=== PATIENT | male | born 1990 | race Caucasian/White ===

== ENCOUNTER 2021-06-18 04:08 | Emergency (ER) | payer OTHER ==
[~2021-06-18] VITALS: Ht 177.8 cm; Wt 78.0 kg
[2021-06-18] MEDS ORDERED: AZITHROMYCIN500 MG PO (04:23)
[2021-06-18] MEDS ORDERED: REGLAN 10 MG TA10 MG PO (04:23)
[2021-06-18] MEDS ORDERED: ACID REDUCER20 MG PO (04:24)
[2021-06-18] MEDS ORDERED: CYROHEPTADINE (04:25)
[2021-06-18 04:49] LABS: ABSOLUTE LYMPHOCYTES 0.8 thou/uL (0.8-5.3); ABSOLUTE MONOCYTES 0.2 thou/uL (0.0-1.2); ABSOLUTE NEUTROPHILS 2.1 thou/uL (1.6-8.1); BASOPHILS 0.8 %; EOSINOPHILS 0.3 %; HEMATOCRIT 37.7 % (42.0-52.0); LYMPHOCYTES 25.7 %; MCH 29.8 pg (26.0-34.0); MCHC 34.5 g/dL (28.0-37.0); MCV 86.3 fL (80.0-100.0); MONOCYTES 5.9 %; NUCLEATED RBCS 0 /100WBC; PLATELET COUNT* 129 thou/uL (150-400); POLYS 67.3 %; RBC 4.37 mil/uL (4.50-6.00); RDW-CV 12.7 % (10.5-14.5); WBC 3.1 thou/uL (4.0-11.0)
[2021-06-18 05:00] LABS: CALCIUM 8.2 mg/dL (8.5-10.1)
[2021-06-18 05:04] LABS: ALBUMIN 3.4 g/dL (3.4-5.0); TOTAL BILIRUBIN 0.3 mg/dL (<0.1-1.0); TOTAL PROTEIN 6.7 g/dL (6.4-8.2)
[2021-06-18] MEDS ORDERED: PROAIR HFA8.5 GM INH (06:20)
[2021-06-18] MEDS ORDERED: AUGMENTIN 875-1 EACH PO (06:20)
[2021-06-18] MEDS ORDERED: ZOFRAN ODT4 MG PO (06:20)
[2021-06-18] MEDS ORDERED: HYDROCODONE-CH115 ML PO (06:20)
[2021-06-18] MEDS ORDERED: DECADRON6 MG PO (06:20)
[2021-06-18 06:42] VITALS: BP 130/76
--- NOTE | 2021-06-18 11:24 | EKG ---
[place] [address] ELECTROCARDIOGRAM REPORT Name: HERMINIA MOTA DAVID Room: [facility]#: [id number] Admission: 06/18/21 Attend Phys: Discharge: 06/18/21 Date of : 88 Date of Service: 06/18/21446 Report #: [id number] THIS REPORT FOR: //name// [facility] ED Test Date: 2021-06-18 Test Time: 04:47:27 Pat Name: HERMINIA MOTA Department: Room: Gender: [employer] Paralegal: [facility] : 1990 Requested By: Mily Guerra Order Number: [id number] MD: Lars Walls Measurements Intervals [place] Rate: 84 P: 70 [place]: 128 QRS: 68 QRSD: 86 T: 16 QT: 331 QTc: 392 Interpretive Statements Sinus rhythm No previous ECG available for comparison Electronically Signed On 06-18-2021 11:24:39 CDT by Lars Walls [email or web address] <ELECTRONICALLY SIGNED> By: Lars Walls MD, [facility] 06/18/21 1124 6 6 Lars Walls MD, FACC /EPI
== END 2021-06-18 06:42 | disposition home or self-care (01) ==
LOC: M.ERS 04:08
PROVIDERS: Emergency Medicine
DX: U07.1 COVID-19 (principal); J18.9 Pneumonia, unspecified organism; J45.909 Unspecified asthma, uncomplicated; F98.8 Other specified behavioral and emotional disorders with onset usually occurring in childhood and adolescence; Z90.49 Acquired absence of other specified parts of digestive tract; Z79.2 Long term (current) use of antibiotics; Z79.899 Other long term (current) drug therapy